=== PATIENT | male | born 1975 | race Hispanic/Latino ===

== ENCOUNTER 2018-03-30 05:59 | Day surgery (SDC) | payer OTHER ==
[2018-03-29 11:11] VITALS: BMI 25.0
[2018-03-30] MEDS ORDERED: Lactated Ringer's 1,000 ML IV ONE (06:46)
[2018-03-30] MEDS ORDERED: MethylPREDNISolone Depo 40 mg/ml Inj ONE (07:37)
[2018-03-30] MEDS ORDERED: Iohexol 300 10 ML ONE (07:38)
[2018-03-30] MEDS ORDERED: Dexamethasone 4 mg/1 ml ONE (07:38)
[2018-03-30] MEDS ORDERED: Lidocaine 2% PF (10 ml) Amp ONE (07:38)
[2018-03-30] MEDS ORDERED: Bupivacaine HCl 0.25% PF (10 ml) Inj ONE (07:39)
[2018-03-30] MEDS ORDERED: Bupivacaine HCl 0.25% PF (10 ml) Inj IJ ONE (08:00)
[2018-03-30] MEDS ORDERED: Dexamethasone 4 mg/1 ml IM ONE (08:00)
[2018-03-30] MEDS ORDERED: MethylPREDNISolone Depo 40 mg/ml Inj IM ONE (08:00)
[2018-03-30] MEDS ORDERED: Iohexol 300 10 ML IJ ONE (08:00)
[2018-03-30] MEDS ORDERED: LIDOCAINE 2% 10ML 20 MG/ML VIAL IJ ONE (08:00)
[2018-03-30] MEDS ORDERED: Lactated Ringer's 1,000 ML IV PRN (08:41)
[2018-03-30 09:04] VITALS: RESP 18
[2018-03-30 10:21] VITALS: BP 147/98; PULSE 6; TEMP 97.6
[2018-03-30 10:22] VITALS: O2SAT 97
--- NOTE | 2018-03-30 10:36 | OP ---
PROCEDURE DATE: 03/30/2018 PREOPERATIVE DIAGNOSIS: Cervical radiculopathy. POSTOPERATIVE DIAGNOSIS: Cervical radiculopathy. PROCEDURE: Cervical epidural steroid injection and right C6-C7 medial branch nerve block. SURGEON: Maeve Quinonse MD ANESTHESIOLOGIST: Dr. Schneider. TYPE OF ANESTHESIA: Monitored anesthesia care. COMPLICATIONS: None. SPECIMEN: None. DESCRIPTION OF PROCEDURE: As follows. After we had a discussion of the procedure with the patient including its risks, benefits, alternatives, outcome data, possibility of no effects or increased pain, the patient consented to the procedure. He denies any recent infections, bleeding tendencies or being on anticoagulants. The decision was then made to proceed to the OR. The patient was placed on a fluoroscopy table in a prone position using a head positioner. The neck was prepped and draped in the usual sterile fashion and sterile technique was adhered during the entire procedure. The C7-T1 interlaminar space was first identified in the anterior posterior view. The skin overlying this area was then infiltrated with 1% lidocaine using 25-gauge needle. Subsequently, a 20-gauge 3.5 inch Tuohy needle was then incrementally advanced under fluoroscopic guidance using loss of resistance technique. After 5 cm depth was reached, lateral fluoroscopy was used to guide the rest of the needle advancement. The epidural space was accessed at approximately 9 cm depth. This was confirmed by injecting approximately 1 mL of Isovue contrast showing appropriate epidural and nerve root spread without any signs of CSF or intravenous involvement. At this point, approximately 5 mL of Decadron and normal saline mixture was gradually injected. The needle was then removed. Then, the right C6 and C7 medial branch nerve were performed. The medial branch nerves were located at the mid point of the facet border on the right side of the C6 and C6 vertebrae. The skin overlying these two areas were then infiltrated with 1% lidocaine using 25-gauge needle. Subsequently, a 22-gauge 3.5 inch spinal needle was incrementally advanced under fluoroscopic guidance until tip of needle made bony contact with both target areas. The needle was then worked slightly laterally and anteriorly. After satisfactory positioning of both needles, approximately 0.5 mL of Isovue contrast was injected to rule out intravenous uptake. After doing so, approximately 2 mL of 0.25% Marcaine and Depo-Medrol mixture was injected. The needle was then removed and the patient's neck was cleaned and dried; bandage was applied. The patient was then transferred to recovery area in good condition without any signs of [employer] toxicity or any neurological deficits. He will have follow up in the office in approximately 2 to 4 weeks. En-Ian Quinones MD
--- NOTE | 2018-03-30 12:55 | RAD ---
PROCEDURE: Intraoperative Fluoroscopy. Cervical Epidural Injection HISTORY: PAIN MANAGEMENT FINDINGS: Fluoroscopic assistance was provided for cervical epidural injection. Please refer to the operative report from [facility]. 109.3 minutes of fluoroscopy time was utilized with a cumulative radiation dose of 22.92 mGy.
== END 2018-03-30 10:47 | disposition home or self-care (01) ==
LOC: H.OPSURG 05:59
PROVIDERS: ATTEND Anesthesiology
DX: M54.12 Radiculopathy, cervical region (principal); E78.5 Hyperlipidemia, unspecified; E03.9 Hypothyroidism, unspecified; M19.90 Unspecified osteoarthritis, unspecified site
CPT/HCPCS: 64490; J1030; J1100; J2270; J7120; Q9967

== ENCOUNTER 2018-06-27 05:58 | Inpatient (IN) | payer OTHER ==
[2018-06-04 15:29] VITALS: BMI 25.7
[2018-06-27] MEDS ORDERED: Propofol 10 mg/ml Inj (20 ML) ONE ×2 (07:07→08:01)
[2018-06-27] MEDS ORDERED: Succinylcholine 200 mg/10 ml Inj IV ONE (07:08)
[2018-06-27] MEDS ORDERED: Lidocaine 4% (Laryng-O-Jet) Kit MM ONE (07:08)
[2018-06-27] MEDS ORDERED: Rocuronium 10 mg/ml (5 ml) ONE ×2 (07:08→08:21)
[2018-06-27] MEDS ORDERED: Phenylephrine 10 mg/ml Inj ONE (07:11)
[2018-06-27] MEDS ORDERED: Dexamethasone 4 mg/1 ml ONE (07:11)
[2018-06-27] MEDS ORDERED: Neostigmine 1:1000 (1 mg/ml) Inj ONE (07:19)
[2018-06-27] MEDS ORDERED: Bupivacaine HCl 0.5% PF (30 ml) Inj ONE (07:21)
[2018-06-27] MEDS ORDERED: Thrombin Topical 5,000 Int Units Spray Kit ONE (07:22)
[2018-06-27] MEDS ORDERED: Bacitracin Ointment 30 GM TUBE ONE (07:22)
[2018-06-27] MEDS ORDERED: Absorbable Gelatin Sponge Size 12-7 ONE (07:22)
[2018-06-27] MEDS ORDERED: Lidocaine 1% w Epi 1:100,000 Inj ONE (07:29)
[2018-06-27] MEDS ORDERED: Acetaminophen IV 1,000 MG in IV SUPPLIES 0 ML IVPB ONE (07:30)
[2018-06-27] MEDS ORDERED: Lactated Ringer's 1,000 ML IV ONE ×2 (07:45)
[2018-06-27] MEDS ORDERED: Midazolam 2 MG/2 ML VIAL ONE (07:48)
--- NOTE | 2018-06-27 07:57 | CP.PCM.HP ---
History of Present Illness - History of Present Illness History of Present Illness: This is a 43 y/o male with PMHX GERD, hypothyroidism and neck pain who presents with progressive neck pain. The pain is associated with RUE radiculopathy, paresthesias and numbness of BL extremities. HE has attempted conservative treatments such as PT and steroid injections with Dr. Quinones with temporary but unsustained relief. His pain is progressing and now affecting his daily activities and work making activities either limited or unable to do so. No history of trauma. His gait is unaffected. He denies bladder or bowel incontinence. Present on Admission - Present on Admission Any Indicators Present on Admission: No Review of Systems - Neurological Neurological: As Per HPI Past Patient History - Past Medical History & Family History Past Medical History?: Yes - Past Social History Smoking Status: Never Smoked - CARDIAC Hx Cardiac Disorders: Yes - PULMONARY Hx Respiratory Disorders: Yes Hx Bronchitis: Yes - NEUROLOGICAL Hx Neurological Disorder: No - HEENT Hx HEENT Problems: No - RENAL Hx Chronic Kidney Disease: No - ENDOCRINE/METABOLIC Hx Endocrine Disorders: Yes Hx Hypothyroidism: Yes - HEMATOLOGICAL/ONCOLOGICAL Hx Blood Disorders: No - INTEGUMENTARY Hx Dermatological Problems: No - MUSCULOSKELETAL/RHEUMATOLOGICAL Hx Musculoskeletal Disorders: Yes Hx Arthritis: Yes (neck) Hx Back Pain: Yes Other/Comment: numbness right arm - GASTROINTESTINAL Hx Gastrointestinal Disorders: Yes Hx Gastroesophageal Reflux: Yes Other/Comment: hiatus hernia - GENITOURINARY/GYNECOLOGICAL Hx Genitourinary Disorders: No - PSYCHIATRIC Hx Psychophysiologic Disorder: Yes Hx Anxiety: Yes Hx Depression: Yes - SURGICAL HISTORY Hx Surgeries: Yes Hx Arthroscopy: Yes (bilateral shoulder) Hx Herniorrhaphy: Yes (bilateral) Hx Tonsillectomy: Yes Other/Comment: varicelectomy. epidural - ANESTHESIA Hx Anesthesia: Yes Hx Anesthesia Reactions: No Hx Malignant Hyperthermia: No Has any member of the family had a problem w/ anesthesia?: No Meds Allergies/Adverse Reactions: Allergies Allergy/AdvReac Type Severity Reaction Status Date / Time No Known Allergies Allergy Verified 06/04/18 15:29 Physical Exam - Neurological Exam Additional comments: well appearing, NAD, comfortable . pleasant A&Ox3 speech clear CN II-XII intact ROWELL RUE distal motor 4/5 , pain illicited, restricted ROM of neck (+) spurling sign mild dec sensation of C7 dermatome. DTR: 1+ gait: normal , unassisted. Results - Vital Signs Recent Vital Signs: Last Vital Signs Temp Pulse 98 H 06/27/18 06:30 Resp BP Pulse Ox - Labs Labs: Laboratory Results - last 24 hr 06/27/18 07:37 BBK History Checked No verified bt - Imaging and Cardiology MRI C spine Status: Image reviewed by me, Report reviewed by me Assessment & Plan - Assessment and Plan (Free Text) Assessment: Cervical herniated disc Plan: Patient's clinical picture and images reviewed with patient. Found to have C5- C6 disc and C7-T1 HNP on MRI imaging but symptoms are 2/2 C7-T1 disc. Proposed posterior cervical laminoforaminotomy, possible discectomy of C7-T1 Risks, benefits and alternatives explained. Risks such as hemorrhage, CSF leak, sensation loss, weakness, paralysis, failure of surgery and/or need for further surgery in the future ( ACDF) patient expressed understanding and all questions answered. Will proceed with above procedure.
[2018-06-27] MEDS ORDERED: Lidocaine 1% w Epi 1:100,000 Inj INJ ONE (08:20)
[2018-06-27] MEDS ORDERED: Bacitracin OINT 15GM TOP ONE (08:20)
[2018-06-27] MEDS ORDERED: Metoprolol 1 mg/ml Inj IVP ONE (08:25)
[2018-06-27] MEDS ORDERED: HEMOSTATIC MATRIX 10 ML DIS.NEEDLE TOP ONE ×2 (08:49→09:00)
[2018-06-27] MEDS ORDERED: Absorbable Gelatin Sponge Size 12-7 TP ONE (08:59)
[2018-06-27] MEDS ORDERED: Thrombin Topical 5,000 Int Units Spray Kit TOP ONE (08:59)
[2018-06-27] MEDS ORDERED: Bupivacaine 0.5% Inj(30mL) IJ ONE ×2 (09:28→10:02)
--- NOTE | 2018-06-27 10:29 | PCM.SURG1 ---
Surgeon's Initial Post Op Note - Surgeon's Notes Surgeon: Reed Shi MD Displayer: Jl MAHARAJ Type of Anesthesia: General Endo Anesthesia Administered By: Juan DEGROOT Pre-Operative Diagnosis: Cervical HNP Operative Findings: as above. hardened C7-T1 disc Post-Operative Diagnosis: as above Operation Performed: Right posterior cervical laminoforaminotomy C7-T1 Specimen/Specimens Removed: none Estimated Blood Loss: EBL {In ML}: 175 Blood Products Given: N/A Drains Used: Yamil Gallo (Subfascial ) Post-Op Condition: Good Date of Surgery/Procedure: 06/27/18 Time of Surgery/Procedure: 07:40
[2018-06-27] MEDS ORDERED: Lactated Ringer's 1,000 ML IV SCH (10:45)
[2018-06-27] MEDS ORDERED: HYDROmorphone 1 mg/ml ISec ONE ×2 (11:00→11:10)
[2018-06-27] MEDS: HYDROmorphone 0.5 mg/0.5 ml ISec IVP PRN ×2 (11:00→11:10)
[2018-06-27] MEDS ORDERED: Lidocaine 5% Patch TD PRN (11:05)
[2018-06-27] MEDS ORDERED: Dextrose 50% SYRINGE Inj (50 ml) IV PRN (11:19)
[2018-06-27] MEDS ORDERED: Glucagon Recombinant 1 mg Inj IM PRN (11:19)
[2018-06-27] MEDS: oxyCODONE 10 mg Immediate Release Tab PO PRN ×2 (14:00→20:03)
--- NOTE | 2018-06-27 15:38 | CP.PCM.HP ---
History of Present Illness - History of Present Illness History of Present Illness: 43 yo M with history of anxiety, hypothyroidism and progressive neck pain, RUE radiculopathy, s/p right posterior cervical laminoforaminotomy C7-T1 this morning. Pt examined in assigned hospital room when he was transferred from PACU to floor. Reports no acute issues, states he feels well. Since surgery he has been able to urinate, and has been able to eat regular food without nausea or vomiting. Has been out of bed to use restroom, ambulates without difficulty. No chest pain or trouble breathing. PMD: Dr. Mtat Barfield in [place] Past Surg hx: bilateral arthroscopic shoulder procedures, tonsillectomy, adenoidectomy, varicocele, bilateral abdominal hernia repairs Fam hx: father has polyps "throat," sister age 40 of cancer but pt unsure which type Social hx: former smoker, quit 7 years ago (smoked for 15 yrs, 1 to 1.5 ppd), occasional alcohol on special occasions, no drug use NKDA but states doxycycline made him feel sick Meds: Drury thyroid 240 mg daily, Effexor 75 mg QQD Present on Admission - Present on Admission Any Indicators Present on Admission: No Review of Systems - Review of Systems Review of Systems: as per HPI Past Patient History - Past Medical History & Family History Past Medical History?: Yes - Past Social History Smoking Status: Never Smoked - CARDIAC Hx Cardiac Disorders: Yes - PULMONARY Hx Respiratory Disorders: Yes Hx Bronchitis: Yes - NEUROLOGICAL Hx Neurological Disorder: No - HEENT Hx HEENT Problems: No - RENAL Hx Chronic Kidney Disease: No - ENDOCRINE/METABOLIC Hx Endocrine Disorders: Yes Hx Hypothyroidism: Yes - HEMATOLOGICAL/ONCOLOGICAL Hx Blood Disorders: No - INTEGUMENTARY Hx Dermatological Problems: No - MUSCULOSKELETAL/RHEUMATOLOGICAL Hx Musculoskeletal Disorders: Yes Hx Arthritis: Yes (neck) Hx Back Pain: Yes Other/Comment: numbness right arm - GASTROINTESTINAL Hx Gastrointestinal Disorders: Yes Hx Gastroesophageal Reflux: Yes Other/Comment: hiatus hernia - GENITOURINARY/GYNECOLOGICAL Hx Genitourinary Disorders: No - PSYCHIATRIC Hx Psychophysiologic Disorder: Yes Hx Anxiety: Yes Hx Depression: Yes - SURGICAL HISTORY Hx Surgeries: Yes Hx Arthroscopy: Yes (bilateral shoulder) Hx Herniorrhaphy: Yes (bilateral) Hx Tonsillectomy: Yes Other/Comment: varicelectomy. epidural - ANESTHESIA Hx Anesthesia: Yes Hx Anesthesia Reactions: No Hx Malignant Hyperthermia: No Has any member of the family had a problem w/ anesthesia?: No Meds Allergies/Adverse Reactions: Allergies Allergy/AdvReac Type Severity Reaction Status Date / Time No Known Allergies Allergy Verified 06/04/18 15:29 Physical Exam - Constitutional Appears: No Acute Distress - Eye Exam Eye Exam: Normal appearance - ENT Exam ENT Exam: Mucous Membranes Moist - Neck Exam Additional comments: PEGGY drain with small amount sanguineous fluid - Respiratory Exam Respiratory Exam: Clear to Auscultation Bilateral, NORMAL BREATHING PATTERN - Cardiovascular Exam Cardiovascular Exam: REGULAR RHYTHM, +S1, +S2 - GI/Abdominal Exam GI & Abdominal Exam: Normal Bowel Sounds, Soft. absent: Tenderness - Extremities Exam Extremities exam: Positive for: normal inspection. Negative for: calf tenderness, joint swelling, pedal edema - Neurological Exam Neurological exam: Alert, Oriented x3 - Psychiatric Exam Psychiatric exam: Normal Affect - Skin Skin Exam: Dry, Normal Color, Warm Results - Vital Signs Recent Vital Signs: Last Vital Signs Temp 98.2 F 06/27/18 12:45 Pulse 75 06/27/18 12:45 Resp 18 06/27/18 12:45 BP 135/85 06/27/18 12:45 Pulse Ox 96 06/27/18 12:45 - Labs Labs: Laboratory Results - last 24 hr 06/27/18 06/27/18 06/27/18 07:37 08:21 12:01 POC Glucose (mg/dL) 133 H Blood Type A NEGATIVE Blood Type Confirm A NEGATIVE Antibody Screen Negative BBK History Checked No verified bt Assessment & Plan (1) Post-operative state Status: Acute Comment: s/p right posterior cervical laminoforaminotomy C7-T1 (2) Hypothyroid Status: Chronic (3) Anxiety Status: Chronic - Assessment and Plan (Free Text) Plan: - admitted to telemetry - pain control, steroids, antibiotics as per neurosurgery - insulin coverage scale for hyperglycemia - resume home meds for thyroid and anxiety - heart healthy diet - SCDs for now
[2018-06-27] MEDS: HYDROmorphone 1 mg/ml ISec IVP PRN ×2 (17:21→23:38)
[2018-06-27] MEDS: ceFAZolin IV 1 gm in Dextrose 1 GM/50 ML BAG IVPB SCH (17:33)
[2018-06-27] MEDS: Insulin Lispro (humaLOG) 100 Units/ml Inj SC SCH ×2 (18:25→22:14)
--- NOTE | 2018-06-27 23:11 | OP ---
Copied To: Reed Shi MD Attending MD: Reed Shi MD PROCEDURE DATE: 06/27/2018 PREOPERATIVE DIAGNOSIS: Cervical spondylosis and herniated disk. POSTOPERATIVE DIAGNOSIS: Cervical spondylosis and herniated disk. PROCEDURE: Right C7-T1 hemilaminotomy, foraminotomy, decompression. cementer oil well has been used. Fluoroscopy has been used. Microscope has been used. SURGEON: Reed Shi MD ASSOCIATE MEDIA DIRECTOR: Jl Rogers, physician nurses medical assistants phlebotomists, who stayed throughout the case from the beginning to the end who helped me to perform the surgery. DESCRIPTION OF PROCEDURE: The patient was brought to the operating room, anesthetized with general endotracheal anesthesia. Head was placed in a 3-pin Vincent head charger. The patient was placed in a prone position on a Mello frame. cementer oil well has been clamped to the bed. Care was taken to protect all the pressure points. Back of the cervical area was thoroughly prepped and draped in sterile manner after marking was consistent for cervical laminectomy. After prepping and draping the area, the skin has been incised. Bleeding skins had been controlled with bipolar auricular therapist. After using a Bovie auricular therapist, paraspinal muscles had been detached, attachments of spinous process, lamina of C7-T1. Hemilaminotomy retractor has been applied. Identification of levels has been done with the help of fluoroscopy. Under microscopic examination, lateral part of the lamina of C7 and T1, medial parts of the facets of C7-T1 have been drilled. After drilling, the nerve root has been thinned out by using fine Kerrison punch. The thinned out bone has been removed decompressing this area and the node. Disk space has been examined. There was a hard disk noted. After that further foraminotomy has been done. After that hemostasis best achieved. Yamil drain placed in the wound, brought out through a separate stab neck skin incision. Muscles and fascia closed with 1 Vicryl, subcutaneous tissue with 3 Vicryl. Skin has been closed with intradermal 3 Vicryl stitches. The patient tolerated the procedure. After the procedure, mobilized to the recovery room in stabilized condition. Reed Shi MD [facility] # [id number]
[2018-06-28] MEDS: ceFAZolin IV 1 gm in Dextrose 1 GM/50 ML BAG IVPB SCH ×3 (00:31→16:51)
[2018-06-28] MEDS: oxyCODONE 10 mg Immediate Release Tab PO PRN ×5 (01:16→18:03)
[2018-06-28] MEDS: HYDROmorphone 0.5 mg/0.5 ml ISec IVP PRN ×2 (07:01→12:07)
[2018-06-28] MEDS: THYROID 30 MG TAB PO SCH (08:39)
[2018-06-28] MEDS: Venlafaxine 75 mg ER Cap PO SCH (08:42)
[2018-06-28] MEDS: Insulin Lispro (humaLOG) 100 Units/ml Inj SC SCH ×5 (08:42→22:37)
[2018-06-28] MEDS: Pantoprazole 40 mg EC Tab PO SCH (08:43)
--- NOTE | 2018-06-28 09:08 | CP.PCM.PN ---
Subjective - Date & Time of Evaluation Date of Evaluation: 06/28/18 Time of Evaluation: 09:08 - Subjective Subjective: Patient seen and examined at bedside comfortable. Pain well controlled. No longer having radiation of pain to RUE. Has been OOB and tolerating diet without difficulties. No acute events overnight. Objective - Vital Signs/Intake and Output Vital Signs (last 24 hours): Temp Pulse Resp BP Pulse Ox 97.7 F 85 20 141/87 96 06/28/18 08:00 06/28/18 08:00 06/28/18 08:00 06/28/18 08:00 06/28/18 08:00 - Medications Medications: Current Medications Acetaminophen (Tylenol 325mg Tab) 975 mg PO Q6 [facility] Last Admin: 06/28/18 04:56 Dose: Not Given Dexamethasone (Decadron) 4 mg PO Q6 [facility] Stop: 06/28/18 16:01 Last Admin: 06/28/18 04:55 Dose: 4 mg Dexamethasone (Decadron) 4 mg PO Q12 [facility] Stop: 06/29/18 06:01 Last Admin: 06/28/18 08:41 Dose: 4 mg Dexamethasone (Decadron) 2 mg PO Q8 [facility] Stop: 06/30/18 06:01 Dextrose (Dextrose 50% Inj) 0 ml IV STAT PRN; Protocol PRN Reason: Hypoglycemia Protocol Dextrose (Glutose 15) 0 gm PO ONCE PRN; Protocol PRN Reason: Hypoglycemia Protocol Diazepam (Valium) 5 mg PO TID [facility] Last Admin: 06/28/18 08:50 Dose: 5 mg Docusate Sodium (Colace) 100 mg PO BID [facility] Last Admin: 06/28/18 08:41 Dose: 100 mg Glucagon (Glucagen Diagnostic Kit) 0 mg IM STAT PRN; Protocol PRN Reason: Hypoglycemia Protocol Hydromorphone HCl (Dilaudid) 0.5 mg IVP Q3 PRN PRN Reason: Pain, severe (8-10) Last Admin: 06/28/18 07:01 Dose: 0.5 mg Cefazolin Sodium/Dextrose (Ancef Iv 1 Gm Duplex) 1 gm in 50 mls @ 50 mls/hr IVPB Q8 [facility] PRN Reason: Protocol Last Admin: 06/28/18 08:33 Dose: 50 mls/hr Insulin Human Lispro (Humalog) 0 units SC ACCU-CHECK [facility] PRN Reason: Protocol Last Admin: 06/28/18 08:42 Dose: Not Given Lidocaine (Lidoderm) 1 ea TD DAILY PRN PRN Reason: Muscle spasm Oxycodone HCl (Oxycodone Immediate Release Tab) 10 mg PO Q4 PRN PRN Reason: Pain, severe (8-10) Last Admin: 06/28/18 08:54 Dose: 10 mg Pantoprazole Sodium (Protonix Ec Tab) 40 mg PO DAILY [facility] Last Admin: 06/28/18 08:43 Dose: 40 mg Sennosides (Senokot Tab) 17.2 mg PO HS [facility] Last Admin: 06/27/18 22:14 Dose: 17.2 mg Thyroid ([place] Thyroid) 240 mg PO DAILY [facility] Last Admin: 06/28/18 08:39 Dose: 240 mg Venlafaxine HCl (Effexor Xr) 75 mg PO DAILY [facility] Last Admin: 06/28/18 08:42 Dose: 75 mg - Neck Exam Additional comments: ROM limited 2nd to surgery Dressings CDI, PEGGY drain intact with minimal sanguinous drainage (35 cc overnight output) mild swelling and tenderness sensation intact AXN/MN/UN/RN motor intact MN/UN/RN radial pulse intact Assessment and Plan (1) Cervical radiculopathy Assessment & Plan: POD #1 s/p right posterior cervical laminoforaminotomy C7-T1 -pain controlled -OOB -decadron taper -PEGGY drain will remain until tomorrow. Continue to monitor output, possible removal tomorrow, then plan for discharge to home. -above d/w Dr. Shi in agreement Status: Acute
[2018-06-28 09:57] LABS: HEMOGLOBIN 13.7 g/dL (12.0-18.0); MEAN CELL VOLUME 85.1 fl (80.0-94.0); MEAN CORPUSCULAR HEMOGLOBIN 29.8 pg (27.0-31.0); MEAN CORPUSCULAR HGB CONC 35.1 g/dL (33.0-37.0); RBC 4.6 Mil/uL (4.40-5.90); RED CELL DISTRIBUTION WIDTH 13.1 % (11.5-14.5); WHITE BLOOD COUNT 13.9 K/uL (4.8-10.8)
[2018-06-28 10:17] LABS: BLOOD UREA NITROGEN 14 mg/dl (9-20); CALCIUM 9.3 mg/dL (8.4-10.2); GFR AFRICAN-AMERICAN > 60; GFR NON-AFRICAN AMERICAN > 60
--- NOTE | 2018-06-28 11:59 | RAD ---
Date of service: 06/27/2018 PROCEDURE: Fluoroscopy up to 1 hr. HISTORY: CERVICAL LAMINECTOMY COMPARISON: None TECHNIQUE: Standard protocol for this study/examination. FINDINGS: Total fluoroscopic time (continuous mode) utilized during the procedure 15.9 (seconds). Total exam DLP: 1.0 (mGy). IMPRESSION: Submitted images from the current procedure: 1.0
--- NOTE | 2018-06-28 18:03 | CP.PCM.PN ---
Subjective - Date & Time of Evaluation Date of Evaluation: 06/28/18 Time of Evaluation: 09:00 - Subjective Subjective: 43 y/o M reported feeling well, pain is under control, afebrile with No acute events overnight. Pt tolerating PO and ambulating with NO difficulties. Voiding and and having bowel movements without issues. Pt manifest his desire to go home. -PEGGY drain ~35 cc overnight. Objective - Vital Signs/Intake and Output Vital Signs (last 24 hours): Temp Pulse Resp BP Pulse Ox 97.7 F 87 20 121/74 96 06/28/18 15:44 06/28/18 15:44 06/28/18 15:44 06/28/18 15:44 06/28/18 15:44 - Medications Medications: Current Medications Acetaminophen (Tylenol 325mg Tab) 975 mg PO Q6 [facility] Last Admin: 06/28/18 16:59 Dose: 975 mg Dexamethasone (Decadron) 2 mg PO Q8 [facility] Stop: 06/30/18 06:01 Dexamethasone (Decadron) 4 mg PO Q12 [facility] Stop: 06/28/18 21:01 Dextrose (Dextrose 50% Inj) 0 ml IV STAT PRN; Protocol PRN Reason: Hypoglycemia Protocol Dextrose (Glutose 15) 0 gm PO ONCE PRN; Protocol PRN Reason: Hypoglycemia Protocol Diazepam (Valium) 5 mg PO TID [facility] Last Admin: 06/28/18 16:59 Dose: 5 mg Docusate Sodium (Colace) 100 mg PO BID [facility] Last Admin: 06/28/18 16:52 Dose: 100 mg Glucagon (Glucagen Diagnostic Kit) 0 mg IM STAT PRN; Protocol PRN Reason: Hypoglycemia Protocol Hydromorphone HCl (Dilaudid) 0.5 mg IVP Q3 PRN PRN Reason: Pain, severe (8-10) Last Admin: 06/28/18 12:07 Dose: 0.5 mg Insulin Human Lispro (Humalog) 0 units SC ACCU-CHECK [facility] PRN Reason: Protocol Last Admin: 06/28/18 16:53 Dose: 1 unit Lidocaine (Lidoderm) 1 ea TD DAILY PRN PRN Reason: Muscle spasm Oxycodone HCl (Oxycodone Immediate Release Tab) 10 mg PO Q4 PRN PRN Reason: Pain, moderate (4-7) Last Admin: 06/28/18 13:08 Dose: 10 mg Pantoprazole Sodium (Protonix Ec Tab) 40 mg PO DAILY [facility] Last Admin: 06/28/18 08:43 Dose: 40 mg Sennosides (Senokot Tab) 17.2 mg PO HS [facility] Last Admin: 06/27/18 22:14 Dose: 17.2 mg Thyroid ([place] Thyroid) 240 mg PO DAILY [facility] Last Admin: 06/28/18 08:39 Dose: 240 mg Venlafaxine HCl (Effexor Xr) 75 mg PO DAILY [facility] Last Admin: 06/28/18 08:42 Dose: 75 mg - Labs Labs: 06/28/18 09:53 06/28/18 09:53 - Constitutional Appears: Well, No Acute Distress - Head Exam Head Exam: ATRAUMATIC, NORMAL INSPECTION - Eye Exam Eye Exam: EOMI - ENT Exam ENT Exam: Mucous Membranes Moist - Neck Exam Neck Exam: Full ROM, Normal Inspection - Respiratory Exam Respiratory Exam: Clear to Ausculation Bilateral, NORMAL BREATHING PATTERN - Cardiovascular Exam Cardiovascular Exam: REGULAR RHYTHM, +S1, +S2 - GI/Abdominal Exam GI & Abdominal Exam: Soft. absent: Distended, Guarding, Tenderness - Back Exam Additional comments: PEGGY drain with sero-sanguineous fluid. - Neurological Exam Neurological Exam: Alert, Awake, Normal Gait, Oriented x3 Assessment and Plan - Assessment and Plan (Free Text) Assessment: 43 y/o M s/p right posterior cervical laminoforaminotomy C7-T1 as per Cervical radiculopathy management --Continue with current management. --Due to PEGGY drain still having significant amount serous-sanguineous fluid, will remain in placed until tomorrow. --insulin coverage scale for hyperglycemia --resume home meds for thyroid and anxiety --heart healthy diet --SCDs for DVT prophylaxis.
[2018-06-29] MEDS: oxyCODONE 10 mg Immediate Release Tab PO PRN ×3 (02:27→10:41)
[2018-06-29 05:21] LABS: BASO % 0.1 % (0.0-2.0); HEMOGLOBIN 13.4 g/dL (12.0-18.0); LYMPH # 1.1 K/uL (1.0-4.3); LYMPH % 7.8 % (20.0-40.0); MEAN CELL VOLUME 86.8 fl (80.0-94.0); MEAN CORPUSCULAR HEMOGLOBIN 29.3 pg (27.0-31.0); MEAN CORPUSCULAR HGB CONC 33.7 g/dL (33.0-37.0); MEAN PLATELET VOLUME 8.9 fl (7.2-11.7); MONO # 0.7 K/uL (0.0-0.8); MONO % 5.1 % (0.0-10.0); NEUT # 12.2 K/uL (1.8-7.0); NRBC % 0.1 % (0.0-0.0); PLATELET COUNT 243 K/uL (130-400); RBC 4.56 Mil/uL (4.40-5.90); RED CELL DISTRIBUTION WIDTH 13.2 % (11.5-14.5)
[2018-06-29 08:27] LABS: LYMPHOCYTE 12 % (20-50); MONOCYTE 4 % (0-10); NEUTROPHIL 84 % (42-75); PLATELET ESTIMATE NORMAL (NORMAL); TOTAL CELLS COUNTED 100
[2018-06-29 08:28] LABS: LARGE PLATELETS PRESENT; PLATELET CLUMPS PRESENT
[2018-06-29 08:31] VITALS: RESP 20
[2018-06-29] MEDS: Venlafaxine 75 mg ER Cap PO SCH (09:15)
[2018-06-29] MEDS: Pantoprazole 40 mg EC Tab PO SCH (09:16)
[2018-06-29] MEDS: THYROID 30 MG TAB PO SCH (10:17)
[2018-06-29] MEDS: Insulin Lispro (humaLOG) 100 Units/ml Inj SC SCH ×2 (10:20→12:28)
--- NOTE | 2018-06-29 10:38 | CP.PCM.PN ---
Subjective - Date & Time of Evaluation Date of Evaluation: 06/29/18 Time of Evaluation: 10:35 - Subjective Subjective: Patient has minimal pain. RUE symptoms are no longer present post op. Objective - Vital Signs/Intake and Output Vital Signs (last 24 hours): Temp Pulse Resp BP Pulse Ox 97.5 F L 82 20 153/96 H 96 06/29/18 08:30 06/29/18 09:00 06/29/18 08:30 06/29/18 08:30 06/29/18 08:30 - Medications Medications: Current Medications Acetaminophen (Tylenol 325mg Tab) 975 mg PO Q6 [facility] Last Admin: 06/29/18 09:21 Dose: 975 mg Dexamethasone (Decadron) 2 mg PO Q8 [facility] Stop: 06/30/18 06:01 Last Admin: 06/29/18 09:14 Dose: 2 mg Dextrose (Dextrose 50% Inj) 0 ml IV STAT PRN; Protocol PRN Reason: Hypoglycemia Protocol Dextrose (Glutose 15) 0 gm PO ONCE PRN; Protocol PRN Reason: Hypoglycemia Protocol Diazepam (Valium) 5 mg PO TID [facility] Last Admin: 06/29/18 09:21 Dose: 5 mg Docusate Sodium (Colace) 100 mg PO BID [facility] Last Admin: 06/29/18 09:12 Dose: 100 mg Glucagon (Glucagen Diagnostic Kit) 0 mg IM STAT PRN; Protocol PRN Reason: Hypoglycemia Protocol Insulin Human Lispro (Humalog) 0 units SC ACCU-CHECK [facility] PRN Reason: Protocol Last Admin: 06/29/18 10:20 Dose: 1 unit Lidocaine (Lidoderm) 1 ea TD DAILY PRN PRN Reason: Muscle spasm Oxycodone HCl (Oxycodone Immediate Release Tab) 10 mg PO Q4 PRN PRN Reason: Pain, moderate (4-7) Last Admin: 06/29/18 06:37 Dose: 10 mg Pantoprazole Sodium (Protonix Ec Tab) 40 mg PO DAILY [facility] Last Admin: 06/29/18 09:16 Dose: 40 mg Sennosides (Senokot Tab) 17.2 mg PO HS [facility] Last Admin: 06/28/18 21:07 Dose: 17.2 mg Thyroid ([place] Thyroid) 240 mg PO DAILY [facility] Last Admin: 06/29/18 10:17 Dose: 240 mg Venlafaxine HCl (Effexor Xr) 75 mg PO DAILY [facility] Last Admin: 06/29/18 09:15 Dose: 75 mg - Labs Labs: 06/29/18 04:45 06/28/18 09:53 - Neck Exam Additional comments: sensation intact RUE drain 25cc, pulled dressing applied full ROM RUE with 5/5 ore sampler/wrist flex/ext/elbow flex/ext Assessment and Plan (1) Cervical radiculopathy Assessment & Plan: POD#2 s/p posterior hemilaminotomy -d/c home today keep incision clean and dry f/u [address] Shi call for appt d/w Dr. Shi, agrees with above Status: Acute
[2018-06-29 11:59] VITALS: BP 156/87; PULSE 108; TEMP 97.9; O2SAT 97
--- NOTE | 2018-06-29 15:23 | CP.PCM.DIS ---
Provider - Provider Date of Admission: 06/27/18 11:00 Attending physician: Adan Freedman MD Primary care physician: Matt Barfield MD Consults: Orthopedic Surgery: Dr Shi Time Spent in preparation of Discharge (in minutes): 25 Diagnosis - Discharge Diagnosis (1) Cervical radiculopathy Status: Acute Comment: -Will f/u with orthopedic surgery team in 2 weeks. -Medications as indicated. (2) Post-operative state Status: Acute Comment: -Will f/u with orthopedic surgery team in 2 weeks. -Medications as indicated. Hospital Course - Lab Results Lab Results: Most Recent Lab Values WBC 14.0 K/uL (4.8-10.8) H 06/29/18 04:45 RBC 4.56 Mil/uL (4.40-5.90) 06/29/18 04:45 Hgb 13.4 g/dL (12.0-18.0) 06/29/18 04:45 Hct 39.6 % (35.0-51.0) 06/29/18 04:45 MCV 86.8 fl (80.0-94.0) 06/29/18 04:45 MCH 29.3 pg (27.0-31.0) 06/29/18 04:45 MCHC 33.7 g/dL (33.0-37.0) 06/29/18 04:45 RDW 13.2 % (11.5-14.5) 06/29/18 04:45 Plt Count 243 K/uL (130-400) 06/29/18 04:45 MPV 8.9 fl (7.2-11.7) 06/29/18 04:45 Neut % (Auto) 87.0 % (50.0-75.0) H 06/29/18 04:45 Lymph % (Auto) 7.8 % (20.0-40.0) L 06/29/18 04:45 [place] % (Auto) 5.1 % (0.0-10.0) 06/29/18 04:45 Eos % (Auto) 0.0 % (0.0-4.0) 06/29/18 04:45 Baso % (Auto) 0.1 % (0.0-2.0) 06/29/18 04:45 Neut # (Auto) 12.2 K/uL (1.8-7.0) H 06/29/18 04:45 Lymph # (Auto) 1.1 K/uL (1.0-4.3) 06/29/18 04:45 [place] # (Auto) 0.7 K/uL (0.0-0.8) 06/29/18 04:45 Eos # (Auto) 0.0 K/uL (0.0-0.7) 06/29/18 04:45 Baso # (Auto) 0.0 K/uL (0.0-0.2) 06/29/18 04:45 Neutrophils % (Manual) 84 % (42-75) H 06/29/18 04:45 Lymphocytes % (Manual) 12 % (20-50) L 06/29/18 04:45 Monocytes % (Manual) 4 % (0-10) 06/29/18 04:45 Platelet Estimate Normal (NORMAL) 06/29/18 04:45 Plt Clumps, EDTA Present 06/29/18 04:45 Large Platelets Present 06/29/18 04:45 RBC Morphology Normal (NORMAL) 06/29/18 04:45 Sodium 137 mmol/l (132-148) 06/28/18 09:53 Potassium 4.6 MMOL/L (3.6-5.0) 06/28/18 09:53 Chloride 100 mmol/L (98-107) 06/28/18 09:53 Carbon Dioxide 29 mmol/L (22-30) 06/28/18 09:53 Anion Gap 13 (10-20) 06/28/18 09:53 BUN 14 mg/dl (9-20) 06/28/18 09:53 Creatinine 0.7 mg/dl (0.8-1.5) L 06/28/18 09:53 Est GFR ( Amer) > 60 06/28/18 09:53 Est GFR (Non-Af Amer) > 60 06/28/18 09:53 POC Glucose (mg/dL) 156 mg/dL (65-110) H 06/29/18 04:45 Random Glucose 161 mg/dL (75-110) H 06/28/18 09:53 Hemoglobin A1c 5.6 % (4.2-6.5) 06/29/18 04:45 Calcium 9.3 mg/dL (8.4-10.2) 06/28/18 09:53 Blood Type A NEGATIVE 06/27/18 07:37 Blood Type Confirm A NEGATIVE 06/27/18 08:21 Antibody Screen Negative 06/27/18 07:37 BBK History Checked No verified bt 06/27/18 07:37 - Hospital Course Hospital Course: 43 y/o M was admitted s/p right posterior cervical laminoforaminotomy C7-T1 as per Cervical radiculopathy management. PEGGY drain removed today. Pt recovering well from surgery. Elevated BP upon discharge, most probably due to pain, pt instructed to f/u with PCP if HTN persists. Will f/u with Orthopedic Surgery team in 2 weeks for post-surgical evaluation. Take medications as indicated. - Date & Time of H&P Date of H&P: 06/27/18 Time of H&P: 07:55 Discharge Exam - Head Exam Head Exam: ATRAUMATIC, NORMAL INSPECTION - Eye Exam Eye Exam: EOMI, Normal appearance - ENT Exam ENT Exam: Mucous Membranes Moist - Neck Exam Neck exam: Full Rom, Normal Inspection - Respiratory Exam Respiratory Exam: Clear to PA & Lateral, UNREMARKABLE - Cardiovascular Exam Cardiovascular Exam: REGULAR RHYTHM, +S1, +S2 - GI/Abdominal Exam GI & Abdominal Exam: Soft, Unremarkable. absent: Distended, Guarding, Tenderness - Extremities Exam Extremities exam: full ROM, normal capillary refill, normal inspection - Neurological Exam Neurological exam: Alert, Oriented x3 Discharge Plan - Discharge Medications Prescriptions: Cyclobenzaprine [Cyclobenzaprine HCl] 10 mg PO BID #20 tab Dexamethasone [Decadron] 2 mg PO Q12 #6 tab Ibuprofen [Ibu] 400 mg PO Q8 #30 tablet oxyCODONE/Acetaminophen [Percocet 5/325 mg Tab] 1 tab PO Q6 #20 tab - Follow Up Plan Condition: GOOD Disposition: HOME/ ROUTINE Instructions: Foraminotomy (DC) Additional Instructions: follow up with in 7-10 days follow up with pmd in 1 week keep incision dry and clean do not pick scratch or remove glue from incision site. Referrals: Reed Shi MD [Staff Provider] - Matt Barfield MD [Primary Care Provider] -
== END 2018-06-29 12:59 | disposition home or self-care (01) | DRG 517 ==
LOC: H.OPSURG 05:58 → H.TEL 11:00
PROVIDERS: ADMIT Family Medicine; ATTEND Family Medicine
PROC: 01N10ZZ Release Cervical Nerve, Open Approach (ICD-10-PCS; principal; 2018-06-27 07:45)
DX: M50.23 Other cervical disc displacement, cervicothoracic region (principal); M47.22 Other spondylosis with radiculopathy, cervical region; E03.9 Hypothyroidism, unspecified; K21.9 Gastro-esophageal reflux disease without esophagitis; F41.9 Anxiety disorder, unspecified; K44.9 Diaphragmatic hernia without obstruction or gangrene; Z87.891 Personal history of nicotine dependence

== ENCOUNTER 2019-02-27 06:38 | Day surgery (SDC) | payer OTHER ==
[2019-02-25 17:08] VITALS: BMI 23.2
--- NOTE | 2019-02-27 07:33 | CP.SDSHP ---
Same Day Surgery H & P - History Proposed Procedure: Cervical facet block injection Pre-Op Diagnosis: Cervical spondylosis - Previous Medical/Surgical History Endocrine/Metabolic: Thyroid Disease Pain: 6.Severe Pain Previous Surgical History: Cervical laminotomy - Allergies Allergies: Allergies No Known Allergies Allergy (Verified 06/04/18 15:29) - Physical Exam General Appearance: NAD Mental Status: Alert & Oriented x3 Neuro: WNL Heart: WNL Lungs: WNL GI: WNL - {Optional Preform as Required} Abdomen: WNL Integument: WNL Ortho: WNL Other Pertinent Findings: Cervical: bilateral paraspinal tenderness, no midline tenderness, sensation and motor intact AXN/MN/UN/RN, all CN grossly intact - Impression Impression: Patient is a 43 y/o male who presents for elective cervical facet block injection after failing conservative means. Risks/benefits/alternatives were explained to the patient who understands and agrees to proceed with above procedure. Pt. Evaluated Today:Candidate for Anesthesia & Procedure: Yes - Date & Time Date: 02/27/19 Time: 07:35 Short Stay Discharge - Short Stay Discharge Admitting Diagnosis/Reason for Visit: M47.12 Disposition: HOME/ ROUTINE Referrals: Matt Barfield MD [Primary Care Provider] -
[2019-02-27] MEDS ORDERED: Bupivacaine HCl 0.25% PF (30 ml) Inj ONE (07:35)
[2019-02-27] MEDS ORDERED: methylPREDNISolone Depo 80 mg/ml Inj ONE (07:35)
[2019-02-27] MEDS ORDERED: Iohexol 300 10 ML ONE (07:36)
[2019-02-27] MEDS ORDERED: Lidocaine 1% Inj (20ml) ONE (07:36)
[2019-02-27] MEDS ORDERED: Lactated Ringer's 1,000 ML IV ONE (09:30)
[2019-02-27] MEDS ORDERED: Midazolam 2 MG/2 ML VIAL ONE ×2 (09:32→09:37)
[2019-02-27] MEDS ORDERED: Bupivacaine HCl 0.25% PF (30 ml) Inj IJ ONE (09:39)
[2019-02-27] MEDS ORDERED: methylPREDNISolone Depo 80 mg/ml Inj IM ONE (09:39)
[2019-02-27] MEDS ORDERED: Iohexol 300 10 ML IJ ONE (09:39)
[2019-02-27] MEDS ORDERED: Lidocaine 1% Inj (20ml) IJ ONE (09:39)
[2019-02-27 11:19] VITALS: BP 141/87; PULSE 96; RESP 21; TEMP 98.1; O2SAT 99
--- NOTE | 2019-02-28 00:38 | OP ---
PROCEDURE DATE: 02/27/2019 PREOPERATIVE DIAGNOSIS: Cervical spondylosis, disk herniation, and facet arthropathy. POSTOPERATIVE DIAGNOSIS: Cervical spondylosis, disk herniation, and facet arthropathy. PROCEDURE: Bilateral C4, C5 and C6 medial branch nerve blocks. Fluoroscopy has been used. SURGEON: Reed Shi MD CO SURGEON: Maeve Quinones MD WO[employer]S LAB[employer]ER: Del Hendrickson. Del Hendrickson helped me to perform the surgery who stayed throughout the case from the beginning to the end. DESCRIPTION OF PROCEDURE: The patient was brought to the operating room, placed in a prone position. Back of the cervical area was thoroughly prepped in a standard sterile manner. After marking for the point of entry for bilateral medial branch nerve blocks and initially lidocaine with epinephrine has been given, three spinal needles have been placed on bilateral left C4, C5, C6 medial nerve branches corresponding point of entry. Once the needles have been placed, AP and lateral fluoroscopy has been done. Then, Depo-Medrol mixed with Marcaine has been injected into this area achieving medial nerve branch block bilaterally at C4, C5, C6. The needles have been removed. The patient tolerated the procedure. After the procedure, mobilized to the recovery room in stabilized condition. Reed Shi MD
--- NOTE | 2019-03-01 17:25 | RAD ---
Date of service: 02/27/2019 PROCEDURE: Intraoperative Fluoroscopy. HISTORY: PAIN MANAGEMENT FINDINGS: Fluoroscopic assistance was provided. Fluoroscopy time = 37.5 sec. Please refer to the operative report from AYAKA Granados.
== END 2019-02-27 11:45 | disposition home or self-care (01) ==
LOC: H.OPSURG 06:38
PROVIDERS: ATTEND Neurological Surgery
DX: M47.812 Spondylosis without myelopathy or radiculopathy, cervical region (principal); E03.9 Hypothyroidism, unspecified
CPT/HCPCS: 64490; 64491; J1040; J2250; J2405; J3010; J7120; Q9967